=== PATIENT | male | born 1945 | race Caucasian/White ===

== ENCOUNTER 2017-07-16 17:36 | Emergency (ER) | payer MEDICARE ==
--- NOTE | 2017-07-16 19:26 | ERPHSYRPT ---
- History of Present Illness Time Seen by Provider: 07/16/17 19:08 Source: patient, family Exam Limitations: no limitations Patient Subjective Stated Complaint: pt states he has been taking bumatadine for water retention for the past 2 weeks. pt states his bilateral extremities are still swollen and worse toda. denies any increased sob. Triage Nursing Assessment: pt pale, warm, dry. 3 plus pitting edema noted to bilateral extremities. pedal pulses faint and equal. pt breathing wnl. 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 PT DENIES CHEST PAIN, FEVER, ABDOMINAL PAIN. Allergies/Adverse Reactions: Penicillins Allergy (Verified 07/16/17 18:56) Home Medications: Ascorbic Acid [Vitamin C] 1,000 mg PO DAILY 07/16/17 [History] Bumetanide 0.5 mg PO DAILY 07/16/17 [History] Lisinopril [Prinivil] 5 mg PO DAILY 07/16/17 [History] Multivitamin [Multivitamins] 1 each PO DAILY 07/16/17 [History] Omeprazole 20 mg PO DAILY 07/16/17 [History] Oxymorphone HCl 0 mg PO BID 07/16/17 [History] Hx Tetanus, Diphtheria Vaccination/Date Given: Yes (up to date) Hx Influenza Vaccination/Date Given: No Hx Pneumococcal Vaccination/Date Given: No Immunizations Up to Date: Yes - Review of Systems Constitutional: No Fever Cardiac: No Chest Pain Abdominal/Gastrointestinal: Diarrhea, No Abdominal Pain Musculoskeletal: Back Pain, Other (SWOLLEN ANKLES AND FEET) Skin: Other (SKIN CANCER LEFT SIDE OF FOREHEAD) All Other Systems: Reviewed and Negative - Past Medical History Pertinent Past Medical History: Yes Neurological History: No Pertinent History ENT History: No Pertinent History Cardiac History: Hypertension Respiratory History: COPD Endocrine Medical History: No Pertinent History Musculoskeletal History: No Pertinent History GI Medical History: GERD History: No Pertinent History Psycho-Social History: Depression Male Reproductive Disorders: No Pertinent History Other Medical History: CHRONIC PAIN,RIBS,HIP NECK FRACTURED. fx right shoulder - Past Surgical History Past Surgical History: Yes Neuro Surgical History: No Pertinent History Cardiac: No Pertinent History Respiratory: No Pertinent History Gastrointestinal: No Pertinent History Genitourinary: No Pertinent History Musculoskeletal: No Pertinent History Male Surgical History: No Pertinent History Other Surgical History: KNEE ,JAW - Social History Smoking Status: Current every day smoker How long have you smoked: 62 Exposure to second hand smoke: No Drug Use: none Patient Lives Alone: No - Nursing Vital Signs Nursing Vital Signs: Initial Vital Signs Temperature 98.7 F 07/16/17 18:50 Pulse Rate 113 H 07/16/17 18:50 Respiratory Rate 20 07/16/17 18:50 Blood Pressure 120/70 07/16/17 18:50 O2 Sat by Pulse Oximetry 99 07/16/17 18:50 Pain Scale Pain Intensity 9 - Physical Exam General Appearance: alert Eye Exam: PERRL/EOMI Ears, Nose, Throat Exam: TMs normal, pharynx normal, moist mucous membranes Neck Exam: normal inspection Respiratory Exam: lungs clear Cardiovascular Exam: normal heart sounds Gastrointestinal/Abdomen Exam: soft, normal bowel sounds Back Exam: other (SCOLIOSIS) Extremity Exam: pedal edema (+2 ANKLE/FOOT EDEMA BILATERALLY) Neurologic Exam: alert, cooperative Skin Exam: pale, other (SCABBED LESION ON LEFT UPPER ASPECT OF FOREHEAD) SpO2 Interpretation: normal SpO2: 99 Oxygen Delivery: Room Air - Course Nursing assessment & vital signs reviewed: Yes EKG Interpreted by Me: RATE (100), Sinus Tach, NORMAL AXIS, NORMAL INTERVALS - CT Exams Chest CT Interpretation: Discussed w/radiologist (NEW 3.5 CM SPICULATED RUL MASS. SEE REST OF REPORT.) Abdomen/Pelvis CT Interpretation: Tele-radiologist Report (5.4 CM X 6.7 CM X 3.6 CM MASS BELOW LEFT HEMIDIAPHRAGM. CYSTIC MASS INVOLVING THE TAIL OF THE PANCREAS MEASURING 5.4 CM X 1.7 CM. SEE REST OF REPORT.) Ordered Tests: Active Orders 24 hr Category Date Time Status Clean Catch Urine Specimen STAT Care 07/16/17 21:15 Inactive Clean Catch Urine Specimen STAT Care 07/16/17 21:16 Active EKG-ER Only STAT Care 07/16/17 19:18 Active IV Insertion STAT Care 07/16/17 19:50 Active ABDOMEN AND PELVIS W CONTRAST [CT] Stat Exams 07/16/17 21:51 Taken CHEST 2 VIEWS (PA AND LAT) Stat Exams 07/16/17 19:19 Taken CHEST WITHOUT CONTRAST [CT] Stat Exams 07/16/17 20:24 Taken AMYLASE Stat Lab 07/16/17 19:57 Completed CBC W DIFF Stat Lab 07/16/17 19:57 Completed CMP Stat Lab 07/16/17 19:57 Completed ETHYL ALCOHOL Stat Lab 07/16/17 19:57 Completed LIPASE Stat Lab 07/16/17 19:57 Completed MAGNESIUM Stat Lab 07/16/17 19:57 Completed NT PRO BNP Stat Lab 07/16/17 19:57 Completed TROPONIN Q3H Lab 07/16/17 19:57 Completed TROPONIN Q3H Lab 07/16/17 22:43 Completed TROPONIN Q3H Lab 07/17/17 01:30 Ordered TROPONIN Q3H Lab 07/17/17 04:30 Ordered TROPONIN Q3H Lab 07/17/17 07:30 Ordered UA W/RFX UR CULTURE Stat Lab 07/16/17 19:18 Completed Urine Triage Profile Stat Lab 07/16/17 19:18 Completed Medication Summary Generic Name Dose Route Start Last Admin Trade Name Natalia PRN Reason Stop Dose Admin Magnesium Oxide 400 mg 07/16/17 22:00 07/16/17 21:48 Mag-Ox 400 PO 08/15/17 21:59 400 mg BID LEANN Administration Potassium Chloride 40 meq 07/17/17 10:00 07/16/17 21:49 Potassium Chl 40 Meq/30 Ml Oral Solution PO 08/16/17 09:59 40 meq DAILY LEANN Administration Discontinued Medications Generic Name Dose Route Start Last Admin Trade Name Natalia PRN Reason Stop Dose Admin Sodium Chloride 1,000 mls @ 999 mls/hr 07/16/17 19:50 07/16/17 19:58 Sodium Chloride 0.9% 1000 Ml IV 07/16/17 20:50 999 mls/hr .Q1H1M STA Administration Sodium Chloride Confirm 07/16/17 19:51 Sodium Chloride 0.9% 1000 Ml Administered 07/16/17 19:52 Dose 1,000 mls @ ud .ROUTE .STK-MED ONE Potassium Chloride Confirm 07/16/17 21:39 Potassium Chloride 20 Meq Powder For Oral Olga Lidia Administered 07/16/17 21:40 Dose 40 meq .ROUTE .STK-MED ONE Lab/Rad Data: Laboratory Result Diagrams 07/16/17 19:57 07/16/17 19:57 Laboratory Results 07/16/17 07/16/17 07/16/17 Range/Units 22:43 19:57 19:57 WBC (4.0-10.5) K/mm3 RBC (4.1-5.6) M/mm3 Hgb (12.5-18.0) gm/dl Hct (42-50) % MCV (78-100) fl MCH (26-32) pg MCHC (32-36) g/dl RDW (11.5-14.0) % Plt Count (150-450) K/mm3 MPV (6-9.5) fl Gran % (36.0-66.0) % Lymphocytes % (24.0-44.0) % Monocytes % (0.0-12.0) % Eosinophils % (0.00-5.0) % Basophils % (0.0-0.4) % Basophils # (0-0.4) Sodium (136-145) mEq/L Potassium (3.5-5.1) mEq/L Chloride (98-107) mEq/L Carbon Dioxide (21-32) mEq/L Anion Gap (5-15) MEQ/L BUN (9-20) mg/dL Creatinine (0.55-1.30) mg/dl Estimated GFR ML/MIN Glucose (70-110) MG/DL Calcium (8.5-10.1) mg/dL Magnesium (1.8-2.4) mg/dL Total Bilirubin (0.2-1.0) mg/dL AST (15-37) U/L ALT (12-78) U/L Alkaline Phosphatase (46-116) U/L Troponin I 0.026 0.024 (0.000-0.056) ng/ml NT-Pro-B Natriuret Pep 918 H (0-125) pg/ml Serum Total Protein (6.4-8.2) gm/dL Albumin (3.4-5.0) g/dL Amylase (25-115) U/L Lipase (73-393) U/L Ur Collection Type Urine Color (YELLOW) Urine Appearance (CLEAR) Urine pH (5-6) Ur Specific [place] (1.005-1.025) Urine Protein (Negative) Urine Ketones (NEGATIVE) Urine Blood (0-5) Ricco/ul Urine Nitrite (NEGATIVE) Urine Bilirubin (NEGATIVE) Urine Urobilinogen (0-1) mg/dL Ur Leukocyte Esterase (NEGATIVE) Urine Glucose (NEGATIVE) mg/dL Urine Opiates Level (NEGATIVE) Ur Methadone (NEGATIVE) Urine Barbiturates (NEGATIVE) Ur Phencyclidine (PCP) (NEGATIVE) Urine Amphetamine (NEGATIVE) U Benzodiazepine Level (NEGATIVE) Urine Cocaine (NEGATIVE) Urine Marijuana (THC) (NEGATIVE) Ethyl Alcohol 0.053 H (0.00-0.01) % Specimen Received 07/16/17 07/16/17 07/16/17 Range/Units 19:57 19:57 19:18 WBC 8.4 (4.0-10.5) K/mm3 RBC 2.60 L (4.1-5.6) M/mm3 Hgb 8.2 L (12.5-18.0) gm/dl Hct 24.8 L (42-50) % MCV 95.4 (78-100) fl MCH 31.5 (26-32) pg MCHC 33.1 (32-36) g/dl RDW 15.2 H (11.5-14.0) % Plt Count 363 (150-450) K/mm3 MPV 8.3 (6-9.5) fl Gran % 69.7 H (36.0-66.0) % Lymphocytes % 22.8 L (24.0-44.0) % Monocytes % 6.9 (0.0-12.0) % Eosinophils % 0.4 (0.00-5.0) % Basophils % 0.2 (0.0-0.4) % Basophils # 0.02 (0-0.4) Sodium 139 (136-145) mEq/L Potassium 3.4 L (3.5-5.1) mEq/L Chloride 102 (98-107) mEq/L Carbon Dioxide 31.7 (21-32) mEq/L Anion Gap 8.2 (5-15) MEQ/L BUN 9 (9-20) mg/dL Creatinine 0.69 (0.55-1.30) mg/dl Estimated GFR > 60 ML/MIN Glucose 123 H (70-110) MG/DL Calcium 8.2 L (8.5-10.1) mg/dL Magnesium 1.4 L (1.8-2.4) mg/dL Total Bilirubin 0.30 (0.2-1.0) mg/dL AST 22 (15-37) U/L ALT 9 L (12-78) U/L Alkaline Phosphatase 115 (46-116) U/L Troponin I (0.000-0.056) ng/ml NT-Pro-B Natriuret Pep (0-125) pg/ml Serum Total Protein 6.9 (6.4-8.2) gm/dL Albumin 2.0 L (3.4-5.0) g/dL Amylase 83 (25-115) U/L Lipase 483 H (73-393) U/L Ur Collection Type Urine Color (YELLOW) Urine Appearance (CLEAR) Urine pH (5-6) Ur Specific [place] (1.005-1.025) Urine Protein (Negative) Urine Ketones (NEGATIVE) Urine Blood (0-5) Ricco/ul Urine Nitrite (NEGATIVE) Urine Bilirubin (NEGATIVE) Urine Urobilinogen (0-1) mg/dL Ur Leukocyte Esterase (NEGATIVE) Urine Glucose (NEGATIVE) mg/dL Urine Opiates Level NEG. (NEGATIVE) Ur Methadone NEG. (NEGATIVE) Urine Barbiturates NEG. (NEGATIVE) Ur Phencyclidine (PCP) NEG. (NEGATIVE) Urine Amphetamine NEG. (NEGATIVE) U Benzodiazepine Level NEG. (NEGATIVE) Urine Cocaine NEG. (NEGATIVE) Urine Marijuana (THC) NEG. (NEGATIVE) Ethyl Alcohol (0.00-0.01) % Specimen Received 07/16/17 Range/Units 19:18 WBC (4.0-10.5) K/mm3 RBC (4.1-5.6) M/mm3 Hgb (12.5-18.0) gm/dl Hct (42-50) % MCV (78-100) fl MCH (26-32) pg MCHC (32-36) g/dl RDW (11.5-14.0) % Plt Count (150-450) K/mm3 MPV (6-9.5) fl Gran % (36.0-66.0) % Lymphocytes % (24.0-44.0) % Monocytes % (0.0-12.0) % Eosinophils % (0.00-5.0) % Basophils % (0.0-0.4) % Basophils # (0-0.4) Sodium (136-145) mEq/L Potassium (3.5-5.1) mEq/L Chloride (98-107) mEq/L Carbon Dioxide (21-32) mEq/L Anion Gap (5-15) MEQ/L BUN (9-20) mg/dL Creatinine (0.55-1.30) mg/dl Estimated GFR ML/MIN Glucose (70-110) MG/DL Calcium (8.5-10.1) mg/dL Magnesium (1.8-2.4) mg/dL Total Bilirubin (0.2-1.0) mg/dL AST (15-37) U/L ALT (12-78) U/L Alkaline Phosphatase (46-116) U/L Troponin I (0.000-0.056) ng/ml NT-Pro-B Natriuret Pep (0-125) pg/ml Serum Total Protein (6.4-8.2) gm/dL Albumin (3.4-5.0) g/dL Amylase (25-115) U/L Lipase (73-393) U/L Ur Collection Type CLEAN CATCH Urine Color YELLOW (YELLOW) Urine Appearance CLEAR (CLEAR) Urine pH 5.0 (5-6) Ur Specific [place] 1.020 (1.005-1.025) Urine Protein NEGATIVE (Negative) Urine Ketones SMALL (NEGATIVE) Urine Blood NEGATIVE (0-5) Ricco/ul Urine Nitrite NEGATIVE (NEGATIVE) Urine Bilirubin NEGATIVE (NEGATIVE) Urine Urobilinogen NORMAL (0-1) mg/dL Ur Leukocyte Esterase NEGATIVE (NEGATIVE) Urine Glucose NEGATIVE (NEGATIVE) mg/dL Urine Opiates Level (NEGATIVE) Ur Methadone (NEGATIVE) Urine Barbiturates (NEGATIVE) Ur Phencyclidine (PCP) (NEGATIVE) Urine Amphetamine (NEGATIVE) U Benzodiazepine Level (NEGATIVE) Urine Cocaine (NEGATIVE) Urine Marijuana (THC) (NEGATIVE) Ethyl Alcohol (0.00-0.01) % Specimen Received [id number] - Progress Progress Note: 07/16/17 21:53 PT REFUSES RECTAL EXAM. 07/16/17 23:38 PT REFUSES HOSPITALIZATION. - Departure Time of Disposition: 23:38 Departure Disposition: Home Clinical Impression: RIGHT LUNG MASS, MASS BELOW LEFT HEMIDIAPHRAGM, CYSTIC MASS IN TAIL OF PANCREAS , DEPENDENT EDEMA, ANEMIA, MILD HYPOKALEMIA, HYPOMAGNESEMIA, COPD, DEPRESSION, GERD Condition: Stable Critical Care Time: No Referrals: RODRIGUEZ TANNER [Primary Care Provider] -
[2017-07-16] MEDS ORDERED: Sodium Chloride 0.9% 1000 ML 1,000 ML IV STA (19:50)
[2017-07-16] MEDS ORDERED: Sodium Chloride 0.9% 1000 ML 1,000 ML ONE (19:51)
[2017-07-16 20:01] LABS: BASOPHIL % 0.2 % (0.0-0.4); Eosinophil % 0.4 % (0.00-5.0); Granulocytes % 69.7 % (36.0-66.0); Lymphocytes % 22.8 % (24.0-44.0); Mean Cell Volume 95.4 fl (78-100); Mean Corpuscular Hemoglobin 31.5 pg (26-32); Mean Platelet Volume 8.3 fl (6-9.5); Monocytes % 6.9 % (0.0-12.0); Platelet Count 363 K/mm3 (150-450); Red Cell Distribution Width 15.2 % (11.5-14.0); White Blood Count 8.4 K/mm3 (4.0-10.5)
[2017-07-16 20:25] LABS: ALKALINE PHOSPHATASE 115 U/L (46-116); ANION GAP 8.2 MEQ/L (5-15); BLOOD UREA NITROGEN 9 mg/dL (9-20); CHLORIDE 102 mEq/L (98-107); Carbon Dioxide 31.7 mEq/L (21-32); Glucose 123 MG/DL (70-110); LIPASE 483 U/L (73-393); MAGNESIUM 1.4 mg/dL (1.8-2.4); Potassium 3.4 mEq/L (3.5-5.1); SGOT/AST 22 U/L (15-37); SGPT/ALT 9 U/L (12-78); SODIUM 139 mEq/L (136-145); Total Protein 6.9 gm/dL (6.4-8.2)
[2017-07-16 20:31] LABS: ETHYL ALCOHOL 0.053 % (0.00-0.01)
[2017-07-16 21:22] LABS: Collection Type CLEAN CATCH
[2017-07-16 21:23] LABS: ADD URINE CULTURE? NO (NO); Bilirubin NEGATIVE (NEGATIVE); Blood NEGATIVE Ery/ul (0-5); COMPLETE URINE MICROSCOPIC? NO; Glucose NEGATIVE (NEGATIVE); Leukocyte Esterase NEGATIVE (NEGATIVE)
[2017-07-16] MEDS ORDERED: MAG-OX 400 ONE (21:36)
[2017-07-16] MEDS ORDERED: POTASSIUM CHLORIDE 20 MEQ POWDER FOR ORAL SOL ONE (21:39)
[2017-07-16] MEDS ORDERED: MAG-OX 400 PO SCH (22:00)
[2017-07-16 23:33] VITALS: O2SAT 99
[2017-07-16 23:46] VITALS: BP 154/88; PULSE 108
--- NOTE | 2017-07-17 08:34 | XRAY ---
Indication: Ankle/feet swelling. Short of breath. Comparison: October 24, 2014. AP/lateral chest again hyperinflated. There is new right upper lobe masslike opacity. No focal infiltrate, consolidation, or large effusion. Heart is not enlarged. Stable hilar calcified nodes and hiatal hernia. Bony thorax again demonstrates osteopenia and progressive worsening multilevel thoracolumbar compression deformities. Also new nonunited right clavicle fracture. Impression: 1. Right upper lobe mass confirmed on same-day CT chest exam. 2. Stable COPD and hiatal hernia. 3. Thoracolumbar compression fractures and right clavicle fracture.
--- NOTE | 2017-07-17 08:43 | XRAY ---
Indication: Mass on same-day chest radiograph. Short of breath. Ankle/feet swelling. Multiple contiguous images obtained through the chest without contrast as ordered. Comparison: January 15, 2014. Lungs again hyperinflated with scattered peripheral fibrosis/scarring. There is now a 3.5 cm peripheral right upper lobe noncalcified spiculated mass corresponding to the chest radiograph finding with adjacent minimal pleural thickening. Elsewhere no infiltrate or effusion. Heart is not enlarged. Aorta again mildly calcified without aneurysmal dilatation. Stable chunky calcified bilateral hilar lymph nodes. Slightly enlarging moderate sized hiatal hernia with now small ascites. Bony thorax demonstrates osteopenia and progressive worsening multilevel remote appearing thoracolumbar compression fractures. There is also new finding for nonunited right clavicle shaft fracture and healing sternal fracture. Again old right 10th/11th rib fractures. CT abdomen/pelvis reported separately. Impression: 1. 3.5 cm right upper lobe spiculated mass worrisome for malignancy. 2. Interval enlarging hiatal hernia. 3. No acute cardiopulmonary abnormalities on this noncontrast exam. 4. Worsening multilevel thoracolumbar compression fractures with stable old right 10th/11th rib fractures. Also incidental nonunited right clavicle fracture and healing sternal fracture. CT DI 10.45
--- NOTE | 2017-07-17 09:08 | XRAY ---
Indication: Abdomen pain, elevated lipase, weakness, ascites, lung mass, and ankles/feet swelling. Multiple contiguous axial images obtained through the abdomen and pelvis using 80 cc Isovue 370 contrast only. Comparison: Noncontrast exam March 10, 2014. CT chest reported separately. Noncontrasted stomach and bowel loops appear nonobstructed. Small bowel loops demonstrates diffuse moderate circumferential wall thickening greatest left abdomen favoring enteritis. There is new small abdominal and pelvic ascites. No walled off fluid collection or free air. Tail of pancreas demonstrates new irregular cystic mass measuring 5.4 x 1.7 cm. Just superior to this is a subdiaphragmatic heterogeneous mass measuring 3.6 x 6.7 cm that may or may not be related to the pancreas. Gallbladder demonstrates new sludge and borderline wall thickening without gallstones or abnormal biliary distention. Diffuse fatty liver. Again a few tiny calcified splenic granulomas and small bilateral renal cortical cysts. Remaining adrenal glands, ureters, and bladder appear unremarkable. There remains extensive aortoiliac calcifications without aneurysmal dilatation. New small fluid filled right inguinal hernia. Osseous structures remain demineralized. Progressive worsening remote appearing multilevel thoracolumbar compression fractures, greatest T9 segment with near complete collapse. Impression: 1. New pancreatic tail cystic mass. There is also a new left subdiaphragmatic heterogeneous mass adjacent to the tail of pancreas that may or may not be related. Findings worrisome for malignancy. 2. New small bowel enteritis and abdominal/pelvic ascites. 3. New gallbladder sludge with borderline wall thickening. 4. New fluid-filled right inguinal hernia. 5. Stable fatty liver, bilateral renal cysts, and extensive arteriosclerotic disease. 6. Again osteopenia with progressive worsening thoracolumbar compression fractures. Comment: Preliminary interpretation was made by [facility]. No discrepancy. CT DI 14.38
[2017-07-17] MEDS ORDERED: POTASSIUM CHL 40 MEQ/30 ML ORAL SOLUTION PO SCH (10:00)
== END 2017-07-16 23:53 | disposition home or self-care (01) ==
LOC: ED 17:36
DX: R91.8 Other nonspecific abnormal finding of lung field (principal); K86.2 Cyst of pancreas; R60.9 Edema, unspecified; D64.9 Anemia, unspecified; E87.6 Hypokalemia; E83.42 Hypomagnesemia; J44.9 Chronic obstructive pulmonary disease, unspecified; F32.9 Major depressive disorder, single episode, unspecified; K21.9 Gastro-esophageal reflux disease without esophagitis; Z79.899 Other long term (current) drug therapy; I10 Essential (primary) hypertension
CPT/HCPCS: 99285; 36000; 96360; 93005; 82150; 81002; 36415; 83690; 83880; 83735; 80307; 85025; 80053; 84484; 71020; 74177; 71250; G0481; A9270-GY